=== PATIENT | male | born 1960 | race Two or more races ===

== ENCOUNTER 2023-09-27 18:20 | Inpatient (IN) | payer OTHER ==
[~2023-09-27] VITALS: Ht 172.7 cm; Wt 74.8 kg
[2023-09-27] MEDS ORDERED: JANUMET XR 1001 EACH PO (18:31)
[2023-09-27] MEDS ORDERED: GLIPIZIDE ER10 MG PO (18:32)
[2023-09-27] MEDS ORDERED: VASOTEC20 MG PO (18:32)
[2023-09-27] MEDS ORDERED: PROAIR RESPICL90 MCG IH (18:32)
[2023-09-27] MEDS ORDERED: HUMULIN N100 UNIT/2 SUBCUTANEO (18:32)
[2023-09-27] MEDS ORDERED: ZOCOR20 MG PO (18:32)
[2023-09-27] MEDS ORDERED: PEPCID AC20 MG PO (18:32)
[2023-09-27] MEDS ORDERED: PROTONIX40 MG PO (18:33)
[2023-09-27] MEDS ORDERED: TENORMIN25 MG PO (18:33)
[2023-09-27] MEDS ORDERED: ALLERGY RELIE15.8 ML NS (18:33)
[2023-09-27 20:21] LABS: HEMATOCRIT 52.3 % (39.0-48.0); HEMOGLOBIN 17.7 g/dL (13-16.00); MEAN CELL VOLUME 93.2 fL (80.0-100.00); MEAN CORPUSCULAR HEMOGLOBIN 31.6 pg (27.00-32.0); MEAN CORPUSCULAR HGB CONC 33.9 g/dl (32.0-36.0); PLATELET COUNT 330 K/uL (150-450); RED BLOOD COUNT 5.62 M/uL (4.00-6.00); RED CELL DISTRIBUTION WIDTH 13.5 % (11.5-14.5)
[2023-09-27 21:10] LABS: ALBUMIN 3.6 gm/dL (3.4-5.0); BILIRUBIN TOTAL 0.82 mg/dL (0.3-1.2); CALCIUM 9.9 mg/dL (8.5-10.1); CREATININE SERUM 1.16 mg/dL (0.70-1.30); GFR 63.79; GLOBULINA 4.5 G/DL (2.4-3.5); POTASSIUM 4.13 mEq/L (3.5-5.1); TOTAL PROTEIN 8.1 gm/dL (6.4-8.2)
[2023-09-27 21:47] LABS: PARTIAL THROMBOPLASTIN TIME 45.3 SECONDS (22.0-34.0); PROTHROMBIN TIME > 90.0 SECONDS (9.0-11.5)
[2023-09-27 23:22] LABS: ABG PH 7.387 (7.35-7.45); ABG PO2 92.5 mmHg (80-100); ABG pCO2 34.3 mmHg (35-45); BICARBONATE 20.1 mmol/l (23-25); SaO2 96.9 %; Tco2 21.2 mmol/l
[2023-09-27 23:23] LABS: allen test SATISFACTORY; o2 21 %; puncture site RADIAL RIGHT
[2023-09-28 00:19] LABS: URINE APPEARANCE Cloudy; URINE BILIRRUBIN Negative (NEGATIVE); URINE BLOOD Negative; URINE COLOR Dark Yellow; URINE LEUKOCYTE Negative; URINE NITRATE Negative; URINE UROBILINOGEN 0.2 E.U./dl
[2023-09-28 00:20] LABS: URINE BACTERIA 22.6 uL (0.0-1933); URINE EPITHELIAL CELLS 10.2 uL (0.0-38.8); URINE RBC 2.1 uL (0.0-20.8); URINE WBC 3.2 uL (0.0-23.2)
[2023-09-28 00:53] LABS: INR 1.11; PROTHROMBIN TIME 11.6 SECONDS (9.0-11.5)
[2023-09-28 01:03] LABS: FIBRINOGEN 304 mg/dL (187.0-446.0); PARTIAL THROMBOPLASTIN TIME 23.6 SECONDS (22.0-34.0)
[2023-09-28 01:19] LABS: D DIMER > 35.20 MG/L
[2023-09-28 01:47] LABS: URINE GLUCOSE 100 MG/DL (NEGATIVE); URINE PROTEIN 100 (NEGATIVE)
[2023-09-29 05:19] LABS: ALBUMIN 3.3 gm/dL (3.4-5.0); BILIRUBIN TOTAL 1.6 mg/dL (0.3-1.2); CREATININE SERUM 1.08 mg/dL (0.70-1.30); GFR 69.28; GLOBULINA 3.6 G/DL (2.4-3.5); MAGNESIUM 2.1 mg/dL (1.8-2.4); PHOSPHOROUS 2.8 mg/dL (2.5-4.9); POTASSIUM 4.57 mEq/L (3.5-5.1); TOTAL PROTEIN 6.9 gm/dL (6.4-8.2)
[2023-09-29 05:27] LABS: HEMATOCRIT 40.9 % (39.0-48.0); HEMOGLOBIN 13.4 g/dL (13-16.00); MEAN CELL VOLUME 94.6 fL (80.0-100.00); MEAN CORPUSCULAR HEMOGLOBIN 31.1 pg (27.00-32.0); MEAN CORPUSCULAR HGB CONC 32.9 g/dl (32.0-36.0); PLATELET COUNT 224 K/uL (150-450); RED BLOOD COUNT 4.32 M/uL (4.00-6.00)
[2023-09-30 19:54] LABS: ALBUMIN 3.6 gm/dL (3.4-5.0); BILIRUBIN TOTAL 0.78 mg/dL (0.3-1.2); CALCIUM 9.2 mg/dL (8.5-10.1); CREATININE SERUM 1.25 mg/dL (0.70-1.30); GFR 58.52; GLOBULINA 3.7 G/DL (2.4-3.5); POTASSIUM 4.24 mEq/L (3.5-5.1); TOTAL PROTEIN 7.3 gm/dL (6.4-8.2)
[2023-10-01] MEDS ORDERED: AMOX-CLAV 875-1 EAC1 PO (16:23)
== END 2023-10-01 17:56 | disposition home or self-care (01) | DRG 392 ==
LOC: ER 18:20 → MEDJ 09-28 00:07
PROVIDERS: General Practice; ADMIT Internal Medicine; ATTEND Internal Medicine
PROC: BW30YZZ Magnetic Resonance Imaging (MRI) of Abdomen using Other Contrast (ICD-10-PCS; principal; 2023-09-30)
DX: K52.89 Other specified noninfective gastroenteritis and colitis (principal); I88.0 Nonspecific mesenteric lymphadenitis; I10 Essential (primary) hypertension; E11.9 Type 2 diabetes mellitus without complications; E78.5 Hyperlipidemia, unspecified; Z79.4 Long term (current) use of insulin
CPT/HCPCS: 74185

== ENCOUNTER 2024-07-19 06:00 | Day surgery (SDC) | payer OTHER ==
[2024-07-17 08:35] LABS: URINE APPEARANCE Clear; URINE BILIRRUBIN Negative (NEGATIVE); URINE BLOOD Negative; URINE COLOR Dark Yellow; URINE GLUCOSE Negative (NEGATIVE); URINE KETONE Trace (NEGATIVE); URINE LEUKOCYTE Negative; URINE NITRATE Negative; URINE PROTEIN 30 (NEGATIVE); URINE UROBILINOGEN 0.2 E.U./dl
[2024-07-17 08:37] LABS: URINE BACTERIA 23.9 uL (0.0-1933); URINE CAST 5.49 uL (0.0-1.40); URINE EPITHELIAL CELLS 4.7 uL (0.0-38.8); URINE WBC 3.2 uL (0.0-23.2)
[2024-07-17 08:44] LABS: HEMATOCRIT 40.7 % (39.0-48.0); HEMOGLOBIN 13.7 g/dL (13-16.00); MEAN CELL VOLUME 93.1 fL (80.0-100.00); MEAN CORPUSCULAR HEMOGLOBIN 31.4 pg (27.00-32.0); MEAN CORPUSCULAR HGB CONC 33.8 g/dl (32.0-36.0); PLATELET COUNT 261 K/uL (150-450); RED BLOOD COUNT 4.37 M/uL (4.00-6.00); RED CELL DISTRIBUTION WIDTH 13.7 % (11.5-14.5)
[2024-07-17 08:52] LABS: URINE RBC 1.2 uL (0.0-20.8)
[2024-07-17 09:12] LABS: PARTIAL THROMBOPLASTIN TIME 25.8 SECONDS (22.0-34.0); PROTHROMBIN TIME 10.9 SECONDS (9.0-11.5)
[2024-07-17 09:35] LABS: ALBUMIN 4.2 gm/dL (3.4-5.0); BILIRUBIN TOTAL 0.53 mg/dL (0.3-1.2); CALCIUM 10.4 mg/dL (8.5-10.1); CREATININE SERUM 1.27 mg/dL (0.70-1.30); GFR 57.28; GLOBULINA 4.1 G/DL (2.4-3.5); POTASSIUM 5.33 mEq/L (3.5-5.1); TOTAL PROTEIN 8.3 gm/dL (6.4-8.2)
[~2024-07-19 06:00] MED LIST: ALLERGY RELIE15.8 ML NS; AMOX-CLAV 875-1 EAC1 PO; GLIPIZIDE ER10 MG PO; HUMULIN N100 UNIT/2 SUBCUTANEO; JANUMET XR 1001 EACH PO; PEPCID AC20 MG PO; PROAIR RESPICL90 MCG IH; PROTONIX40 MG PO; TENORMIN25 MG PO; VASOTEC20 MG PO; ZOCOR20 MG PO
[2024-07-19] MEDS ORDERED: CIPROFLOXACIN IN 5 % DEXTROSE 400 MG/200 ML PIGGYBAG IV ONE (07:29)
[2024-07-19] MEDS ORDERED: MORPHINE SULFATE 4 MG/ML VIAL IV ONE ×2 (09:40→10:10)
== END 2024-07-19 11:45 | disposition home or self-care (01) ==
LOC: CIR.AMB 06:00
PROVIDERS: ATTEND Surgery
DX: K43.0 Incisional hernia with obstruction, without gangrene (principal); Z88.6 Allergy status to analgesic agent; I10 Essential (primary) hypertension; E11.9 Type 2 diabetes mellitus without complications; E78.00 Pure hypercholesterolemia, unspecified
CPT/HCPCS: 49594; C1781